=== PATIENT | male | born 1970 | race Two or more races ===

== ENCOUNTER 2017-10-05 13:01 | Outpatient (CLI) | payer OTHER | END 2017-10-05 13:02 | disposition home or self-care (01) | LOC: SC 13:01 | PROVIDERS: ATTEND Nurse Practitioner Family | DX: G47.33 Obstructive sleep apnea (adult) (pediatric) (principal); M26.609 Unspecified temporomandibular joint disorder, unspecified side; E03.9 Hypothyroidism, unspecified | CPT/HCPCS: 99203; 99212 ==

== ENCOUNTER 2017-12-02 20:49 | Outpatient (CLI) | payer OTHER | END 2017-12-02 20:50 | disposition home or self-care (01) | LOC: SC 20:49 | PROVIDERS: ATTEND Internal Medicine Pulmonary Disease | DX: G47.61 Periodic limb movement disorder (principal); R00.1 Bradycardia, unspecified | CPT/HCPCS: 95810 ==

== ENCOUNTER 2018-01-04 09:16 | Outpatient (CLI) | payer OTHER | END 2018-01-04 09:17 | disposition home or self-care (01) | LOC: SC 09:16 | PROVIDERS: ATTEND Nurse Practitioner Family | DX: R06.83 Snoring (principal); G47.61 Periodic limb movement disorder; R00.1 Bradycardia, unspecified; R53.83 Other fatigue; G47.00 Insomnia, unspecified | CPT/HCPCS: 99212; 99214 ==

== ENCOUNTER 2018-07-13 10:43 | Outpatient (CLI) | payer OTHER | END 2018-07-13 10:44 | disposition home or self-care (01) | LOC: SC 10:43 | PROVIDERS: ATTEND Nurse Practitioner Family | DX: G47.33 Obstructive sleep apnea (adult) (pediatric) (principal) | CPT/HCPCS: 99212; 99214 ==

== ENCOUNTER 2018-08-30 13:13 | Outpatient (CLI) | payer OTHER | END 2018-08-30 13:14 | disposition home or self-care (01) | LOC: SC 13:13 | PROVIDERS: ATTEND Nurse Practitioner Family | DX: G47.33 Obstructive sleep apnea (adult) (pediatric) (principal); G47.00 Insomnia, unspecified | CPT/HCPCS: 99212; 99214 ==

== ENCOUNTER 2018-11-27 10:10 | Outpatient (CLI) | payer OTHER | END 2018-11-27 10:11 | disposition home or self-care (01) | LOC: SC 10:10 | PROVIDERS: ATTEND Nurse Practitioner Family | DX: G47.33 Obstructive sleep apnea (adult) (pediatric) (principal); G47.00 Insomnia, unspecified | CPT/HCPCS: 99212; 99214 ==

== ENCOUNTER 2019-01-10 08:34 | Outpatient (CLI) | payer OTHER ==
[2019-01-10 09:53] VITALS: BP 114/68
--- NOTE | 2019-01-10 09:53 | SLEEP CARE CONSULTATION ---
Information from patient questionnaire entered by Debbie Dick. I have reviewed and concur with the information entered by Debbie Dick. This document represents the service I personally performed and the decisions made by me, Arleen Silverio, RN, MSN, ADMINISTRATIVE SUPPORT ASSOCIATE. History of Present Illness Previous diagnosis: Mild (The ), Obstructive Sleep Apnea-Hypopnea Syndrome AHI: 7 Reason for CPAP/BiPAP follow up: one month Equipment type: CPAP Equipment obtained from: [facility] Mask style: Full face Mask brand: Respironics Backup mask available: Yes (he has a Dreamwear full face mask. ) Last cushion change: none since July due to supply replacement problem HPI additional information: The pressure was not changed as ordered. Patient is not able to get supplies refilled as requested. The diary helped him sleep better in recognizing to use CPAP better and what was bothering him. He is feeling a little more acclimated with CPAP. 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 CPAP Compliance Data - Data Reviewed with Patient Average duration of nightly device use: 5.45 Compliance rate %: 76.7 Humidity settin Heated hose settin Average residual AHI: 1.6 Average large leak: 18 seconds Subjective Patient concerns: reports: air blowing in eyes (believes it is due to failing cushion), mask leak noise (He wonders if due to drooling in mask. ), condensation in mask/hose, other (He is pulling off mask when too much mask nois e as well as taking off when not aware and waking with mask off face about 50% of time. ). denies: aerophagia, mask discomfort, dry mouth, nose, throat, epistaxis Observed to snore while using device: No On therapy, patient: reports: sleeping better, awakening more refreshed ( a little dependent upon other life events), being more awake and alert during the day, more rested overall. denies: drowsiness while driving Initial [place] Sleepiness Scale score: 3 Current [place] Sleepiness Scale score: 5 Review of Systems Review of systems same as previous: No Ear/Nose/Throat: reports: nasal congestion Endocrine: reports: thyroid disease Musculoskeletal: reports: joint pain (hip pain evaluated in November) Immunologic: reports: sneezing, allergies to food or environment (allergic rhinitus ) Allergies and Home Medications Known drug allergies: No Home medication list reviewed: Yes Allergy and home medication list: Levothyroxine 112mcg tab one daily Ergocalciferol (Vitamin D) 50,000IU tab one weekly Naproxen 500mg tab take as directed as needed Hay fever Physical Exam Blood Pressure: 114/68 Cuff size: regular Heart Rate: 50 O2 Saturation: 98 Height: 6 ft 1.25 in Weight (kg): 92.986 kg Body Mass Index: 26.9 Impression and Plan 1. Obstructive Sleep Apnea-Hypopnea Syndrome, mild, with good treatment compliance and good apnea control. On CPAP therapy, there is improved sleep q uality and continues to feel more rested overall. For supply concerns, I informed patient he can transfer to another company and I will have my discharge inform him of his choices. A DWO prescription will be made. If continued problems with supplies, he can transfer again. Hopefully with new supplies, he will not be waking to mask leaks and able to use CPAP longer. He is already using CPAP an an hour more than last visit. He is advised to restart use of humidity at lowest setting with heated hose at lowest setting to see if his drooling is in response to oral dryness. He was shown how to adjust settings with sample device. I also discussed rationale of why as needed. In preparation for shift work, I reviewed [facility] coping with shift work highlights and how to prepare to sleep during the day and importance of maintaining a regular wake and sleep schedule. He feels that his insomnia has improved by implementing measures discussed. I also noted that he is more rested with 9 hours of sleep on review of sleep diary. So in transition to shift work maybe an 8 hour sleep time with a 1 hour before shift nap will assist him to get the sleep he needs. I will keep him on autoCPAP pressure as he has gained weight and has plans to lose to allow pressure to adjust with weight change. Patient's apnea severity and rationale for treatment to reduce apnea, improve sleep quality and reduce cardiovascular and cerebrovascular events was reviewed. Plan Continue auto CPAP pressure at 4-6 cm H2O. Transfer of Care Notify me if snoring with the mask or feeling that the pressure is too much o r too little. Attempt to lose weight. Adjust humidity / heated hose as instructed Strive for more sleep Implement methods to adjust to shift work to improve sleep efficiency. Return for follow-up in 3 months, or sooner if concerns arise. I spent 100% of this 35 minute visit face to face with the patient with greater than 50% of this was spent time counseling the patient and coordination of care.
== END 2019-01-10 08:35 | disposition home or self-care (01) ==
LOC: SC 08:34
PROVIDERS: ATTEND Nurse Practitioner Family
DX: G47.33 Obstructive sleep apnea (adult) (pediatric) (principal)
CPT/HCPCS: 99212; 99214

== ENCOUNTER 2019-04-09 15:48 | Outpatient (CLI) | payer OTHER ==
[2019-04-09 16:44] VITALS: BP 96/66
--- NOTE | 2019-04-09 16:44 | SLEEP CARE CONSULTATION ---
Information from patient questionnaire entered by Debbie Dick. I have reviewed and concur with the information entered by Debbie Dick. This document represents the service I personally performed and the decisions made by me, Arleen Silverio, RN, MSN, APPRAISAL COORDINATOR. History of Present Illness Previous diagnosis: Mild, Obstructive Sleep Apnea-Hypopnea Syndrome AHI: 7.0 Reason for follow up: three month Equipment type: CPAP Equipment obtained from: [employer] (in [place] - getting supplies now) Mask style: Full face ([place]) Mask brand: Respironics Backup mask available: Yes Last cushion change: 3 weeks ago CPAP Compliance Data - Data Reviewed with Patient Average duration of nightly device use: 5.5 Compliance rate %: 74.4 (90 days) Current pressure setting (cmH2O): 4-6 Humidity settin Heated hose settin Average residual AHI: 2.1 Average large leak: 58 sec Subjective Missed days of use due to: reports: other (unknown) Patient concerns: reports: condensation in mask/hose (rare that he thinks is from drooling. ), nasal congestion (mild- does not interfere with use of CPAP). denies: aerophagia, mask discomfort, air blowing in eyes, mask leak noise, dry mouth, nose, throat, epistaxis Observed to snore while using device: No Current pressure setting perceived as: comfortable On therapy, patient: reports: sleeping better, awakening more refreshed, being more awake and alert during the day, more rested overall (if sufficient sleep). denies: drowsiness while driving Initial [place] Sleepiness Scale score: 3 Current [place] Sleepiness Scale score: 4 Allergies and Home Medications Known drug allergies: No Home medication list reviewed: Yes Allergy and home medication list: Levothyroxine 112mcg tab one daily Ergocalciferol (Vitamin D) 50,000IU tab one weekly Naproxen 500mg tab take as directed as needed Allergy List Hay fever Review of Systems Review of systems same as previous: Yes Physical Exam Blood Pressure: 96/66 Cuff size: long Heart Rate: 58 O2 Saturation: 98 Height: 6 ft 1.25 in Weight: 193 lb Body Mass Index: 25.2 BMI Classification: Overweight Impression and Plan 1. Obstructive Sleep Apnea-Hypopnea Syndrome, mild, with good treatment compliance and good apnea control. On CPAP therapy, the patient has better sleep quality and is more rested overall. For his mask aldrich, I showed him Pad A Cheek strap barriers and phamplet given. He reports that he has always been a drooler but has snored before CPAP which can cause oral dryness. I explained how the body can react to dryness by increasing oral secretions. Thus he is advised to consider use of the humidifier to see if drooling is from dryness. Use of the humidity can also reduce nasal congestion if interfering with CPAP use. Patient's apnea severity and rationale for treatment to reduce apnea, improve sl eep quality and reduce cardiovascular and cerebrovascular events was reviewed. 2. rn shift mgr disorder. Patient just started night filler and is in process of acclimation to new schedule and getting enough sleep while meeting family needs. I reviewed tips to get better sleep as noted in [facility] shift work pamphlet given. He is advised to strive for a minimum of 7 hours of sleep. Most night filler workers sleep best when first return from work after a light snack and shower. Preparing the room for day sleep is essential as well as discussing his sleep needs with his family. His if unable to achieve 7 hours in his first block of sleep, 6 hours may be sufficient if he can take an hour nap before work. Patient agreed with plan. The goal is to keep his sleep schedule as regular as possible every day. * Continue CPP pressure at 4-6 cmH2O * Implement methods discussed to get more sleep. * Notify me if snoring with mask or feeling that the pressure is too much or too little * Attempt to lose weight * Return for follow up in 6 months , or sooner if concerns arise I spent 100% of this 25 minute visit face to face with the patient with greater than 50% of this was spent time counseling the patient and coordination of care.
== END 2019-04-09 15:49 | disposition home or self-care (01) ==
LOC: SC 15:48
PROVIDERS: ATTEND Nurse Practitioner Family
DX: G47.33 Obstructive sleep apnea (adult) (pediatric) (principal); G47.26 Circadian rhythm sleep disorder, shift work type
CPT/HCPCS: 99212; 99214

== ENCOUNTER 2019-10-25 16:07 | Outpatient (CLI) | payer OTHER ==
--- NOTE | 2019-10-25 15:31 | SLEEP CARE CONSULTATION ---
Information from patient questionnaire entered by Debbie Dick. I have reviewed and concur with the information entered by Debbie Dick. This document represents the service I personally performed and the decisions made by me, Arleen Silverio, RN, MSN, TITLE ONE TEACHER. History of Present Illness Service Date and Time: 10/25/2019 1607 Previous diagnosis: Mild, Obstructive Sleep Apnea-Hypopnea Syndrome AHI: 7.1 (in 2017) Reason for follow up: six month Equipment type: CPAP Equipment obtained from: [employer] (in [place] - getting supplies as needed) Mask style: Full face Backup mask available: Yes (old mask ) Last cushion change: a month Prior sleep studies: Yes Year and Where: 2016 - [place] Type of Sleep Study: Polysomnography HPI additional information: works in [place] with [address] No car pool. 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 leaves at 8:30 pm and gets home at 9am. Sleep time 9:30am to 1:30 to 3:30 or so. He sometimes cannot get back to sleep after getting up to use bathroom after 4 hours of sleep. He keeps room cool and opens window or uses fan when wakes. He is averaging about 5 -6 hours on work nights and non work days he makes up his sleep up to 10- 11 hours. He works 3 on and 2 off rotation. CPAP Compliance Data - Data Reviewed with Patient Average duration of nightly device use: 6.1 Compliance rate %: 70.6 (180 days) Current pressure setting (cmH2O): 4-6 Humidity settin Heated hose settin Average residual AHI: 1.9 Average large leak: 2 min 28 sec Subjective Patient concerns: reports: aerophagia (once a month - mild symptoms - declined pressure change ), mask leak noise (headgear strap loose contributing to leaks ). denies: mask discomfort, air blowing in eyes, condensation in mask/hose, nasal congestion, dry mouth, nose, throat, epistaxis, other Observed to snore while using device: No Current pressure setting perceived as: comfortable On therapy, patient: reports: sleeping better, awakening more refreshed, being more awake and alert during the day, more rested overall. denies: drowsiness while driving Initial [place] Sleepiness Scale score: 3 (in 2018) Allergies and Home Medications Home medication list reviewed: No (no changes) Review of Systems Review of systems same as previous: Yes Physical Exam Height: 6 ft 1.25 in Weight: 191 lb (home weight) Body Mass Index: 25.0 BMI Classification: Overweight Impression and Plan 1. Obstructive Sleep Apnea-Hypopnea Syndrome, mild , with good treatment compliance and good apnea control. On CPAP therapy, the patient has better sleep quality and is more rested overall. He is very pleased with benefit of CPAP treatment. He reports occasional mild aerophagia symptoms that he feels occurs when mask is misaligned causing gulpling of air more. I offered to reduce his CPAP pressure but patient declined stating symptoms very minimal and not bothersome. I discussed how future significant weight loss could increase symptoms rationale and to contact this office. He is not planning on losing more than 5 pounds. Patient states his headgear velcro is wearing out and comes loose. He was advised how he can add more velcro until he can update mask. He also reports intermittent fatigue from shift work discussed below. Patient's apnea severity and rationale for treatment to reduce apnea, improve sleep quality and reduce cardiovascular and cerebrovascular events was reviewed. 2. Shift work disorder with intermittent fatigue from insufficient sleep during transition days on and off work. Patient advised to strive for a regular schedule of sleep that is consistent days on and off. He can chart what his work schedule and sleep schedule are currently on paper to dicern how to work out a regular sleep time most nights so he does not have to be sleep deficient and have to make up sleep on days off. Ideally, he should maintain a regular sleep schedule but this is hard to achieve every night with family needs. He is considering 12 hour shifts to have an extra day off but this may reduce opportunity to sleep with commute. He is advised to strive for a minimum of 6 hours of sleep every night and a hour nap before shift. Longer sleep time will allow opportunity for more deep sleep. I also recommend always using the fan at onset for noise buffer, white noise and to keep room comfortable at initiation of sleep to assist lengthen sleep length. He is also advised to review again the [facility] Coping with Shift work pamphlet given at last visit for ideas for better sleep environment and sleep / wake transition * Continue auto CPAP pressure at 4-6 cmH2O * Implement methods to improve sleep efficiency with shift work * Notify me if snoring with mask or feeling that the pressure is too much or too little * Attempt to lose weight * Call this office if any problems using CPAP * Return for follow up in 1 year , or sooner if concerns arise Visit Type: Telehealth Video (to reduce risk of Covid 19 exposure) Patient Location: Home Location of Provider: Home Patient agrees and consents to this telehealth visit type: Yes Patient agrees to have their insurance billed: Yes Time Spent with Patient (minutes): 25 Provider Statement: I spent 100% of the Telehealth Video Call with the patient with greater than 50% spent counseling the patient and coordination of care.
== END 2019-10-25 16:08 | disposition home or self-care (01) ==
LOC: SC 16:07
PROVIDERS: ATTEND Nurse Practitioner Family
DX: G47.33 Obstructive sleep apnea (adult) (pediatric) (principal); G47.26 Circadian rhythm sleep disorder, shift work type; E66.3 Overweight; Z68.25 Body mass index [BMI] 25.0-25.9, adult

== ENCOUNTER 2020-09-27 21:44 | Emergency (ER) | payer OTHER ==
[2020-09-27 21:53] VITALS: BP 134/83
[2020-09-27] MEDS ORDERED: TETANUS/DIPHTHERIA/PERTUSSIS 0.5 ML SYRINGE IM ONE (22:00)
[2020-09-27] MEDS ORDERED: BUFFERED LIDOCAINE 10 ML SYRINGE SUBQ STA (22:00)
--- NOTE | 2020-09-27 22:04 | ED Physician Documentation ---
PD HPI UPPER EXT INJURY - Stated complaint Stated Complaint: RT THUMB LAC - Chief complaint Chief Complaint: Laceration - History obtained from History obtained from: Patient - Additonal information Additional information: Right-handed gentleman who is not up-to-date on tetanus cut his right thumb on a tin can lid at home just prior to arrival. Review of Systems Constitutional: reports: Reviewed and negative Eyes: reports: Reviewed and negative Ears: reports: Reviewed and negative Nose: reports: Reviewed and negative PD PAST MEDICAL HISTORY - Present Medications Home Medications: Ambulatory Orders Medication Instructions Recorded Confirmed Levothyroxine Sodium [Levoxyl] 112 mg PO DAILY 09/27/20 09/27/20 - Allergies Allergies/Adverse Reactions: Allergies Allergy/AdvReac Type Severity Reaction Status Date / Time No Known Drug Allergies Allergy Verified 09/27/20 21:53 PD ED PE NORMAL - Vitals Vital signs reviewed: Yes - General General: Alert and oriented X 3, No acute distress - Extremities Extremities: Other (8 mm laceration on the radial side of the pulp of the right thumb without nail involvement or distal neurovascular compromise.) - Neuro Neuro: Alert and oriented X 3, No motor deficit, Normal speech Results - Vitals Vitals: Vital Signs - 24 hr 09/27/20 21:50 Temperature 36.4 C L Heart Rate 57 L Respiratory 16 Rate Blood Pressure 134/83 H O2 Saturation 100 Oxygen O2 Source Room air Procedures - Laceration (location) R thumb Length in cm: 1 Wound type: Curved, Into subcut fat Neurovascular status: Sensory intact, Motor intact, Vascular intact Tendon involvement: Tendon intact Anesthesia: Lidocaine 1%, With bicarb Wound preparation: Hibiclens, Irrigated copiously NS Skin layer closure: Nylon, Interrupted, Size #-0 - enter number (5-0), Sutures - enter # (3) Other: Patient tolerated well, No complications, Neurovascular intact, Dressing applied, Tetanus booster given Departure - Departure Disposition: 01 Home, Self Care Clinical Impression: Finger laceration Qualifiers: Encounter type: initial encounter Finger: thumb Damage to nail status: without damage Foreign body presence: without foreign body Laterality: right Qualified Code(s): S61.011A - Laceration without foreign body of right thumb without damage to nail, initial encounter Condition: Good Record reviewed to determine appropriate education?: Yes Instructions: ED Laceration Hand Comments: Come back for any signs of infection which would include: Redness, swelling, drainage, increased pain, or fevers. You can wash it soap and water. Keep it covered and moist with bacitracin oint ment which is available over the counter; avoid neosporin. Follow-up with your physician in 10-14 days for suture removal.
== END 2020-09-27 22:36 | disposition home or self-care (01) ==
LOC: ED 21:44
DX: S61.011A Laceration without foreign body of right thumb without damage to nail, initial encounter (principal); W26.8XXA Contact with other sharp object(s), not elsewhere classified, initial encounter; Y93.89 Activity, other specified; Y92.009 Unspecified place in unspecified non-institutional (private) residence as the place of occurrence of the external cause; Z23 Encounter for immunization
CPT/HCPCS: 12001; 90471; 99282; 99283

== ENCOUNTER 2020-11-06 10:33 | Outpatient (CLI) | payer OTHER ==
--- NOTE | 2020-11-06 10:57 | SLEEP CARE CONSULTATION ---
Information from patient questionnaire entered by Debbie Dick. I have reviewed and concur with the information entered by Debbie Dick. This document represents the service I personally performed and the decisions made by , Agnes Mathis ARNP. History of Present Illness Service Date and Time: 11/06/2020 1033 Previous diagnosis: Mild, Obstructive Sleep Apnea-Hypopnea Syndrome AHI: 7.1 (in 2017) Reason for follow up: annual (last seen 10/2019) Equipment type: CPAP Equipment obtained from: [employer] (getting supplies as needed) Mask style: Full face ([place]) Backup mask available: Yes (old mask) Last cushion change: 2 weeks ago Prior sleep studies: Yes Year and Where: 2017 - [facility] additional information: ISREAL GRAVES was diagnosed to have mild, AHI 7.1, obstructive sleep apnea- hypopnea syndrome and returned today for CPAP therapy annual follow-up. CPAP Compliance Data - Data Reviewed with Patient Average duration of nightly device use: 6 hr 49 min Compliance rate %: 72.8 (180 days) Current pressure setting (cmH2O): 4-6 Humidity settin Heated hose settin Average residual AHI: 2.2 Average large leak: 9 min 30 sec Subjective Missed days of use due to: reports: illness, other (work) Patient concerns: reports: aerophagia (sometimes, not every night), mask discomfort. denies: air blowing in eyes, mask leak noise, condensation in mask/hose, nasal congestion, dry mouth, nose, throat, epistaxis, other Observed to snore while using device: No Current pressure setting perceived as: comfortable On therapy, patient: reports: sleeping better, awakening more refreshed, being more awake and alert during the day, more rested overall. denies: drowsiness while driving Initial [place] Sleepiness Scale score: 3 (in 2018) Current [place] Sleepiness Scale score: 5 Allergies and Home Medications Home medication list reviewed: Yes (no new meds) Review of Systems Review of systems same as previous: No (finger laceration last month) Physical Exam Heart Rate: 52 O2 Saturation: 98 Height: 6 ft 2 in Weight: 198 lb Body Mass Index: 25.4 BMI Classification: Overweight Impression and Plan 1. Obstructive Sleep Apnea-Hypopnea Syndrome, mild, with good treatment compliance and good apnea control. On CPAP therapy, the patient has better sleep quality and is more rested overall. He gets occasional aerophagia but thinks this is somewhat positional and does not happen every night. He will let me know if it becomes more concerning or more often and I can adjust his pressure at that time. He is satisfied with current treatment and intends to continue snf. I advised him to try to lose weight. Patient's apnea severity and rationale for treatment to reduce apnea, improve sleep quality and reduce cardiovascular and cerebrovascular events was reviewed. * Continue auto CPAP pressure at 4-6 cmH2O * Notify me if snoring with mask or feeling that the pressure is too much or too little * Attempt to lose weight * Call this office if any problems using CPAP * Return for follow up in 1 year, or sooner if concerns arise Counseling Topics: Spare mask, Weight loss health impact Visit Type: In Office Time Spent with Patient (minutes): 15 Provider Statement: I spent 100% of the Face to Face Visit with the patient with greater than 50% spent counseling the patient and coordination of care.
== END 2020-11-06 10:34 | disposition home or self-care (01) ==
LOC: SC 10:33
PROVIDERS: ATTEND Nurse Practitioner Family
DX: G47.33 Obstructive sleep apnea (adult) (pediatric) (principal); E66.3 Overweight; Z68.25 Body mass index [BMI] 25.0-25.9, adult
CPT/HCPCS: 99212

== ENCOUNTER 2022-03-03 08:34 | Outpatient (CLI) | payer OTHER ==
[2022-03-03 09:02] VITALS: BP 110/72
--- NOTE | 2022-03-03 09:02 | SLEEP CARE CONSULTATION ---
Information from patient questionnaire entered by Natacha Borrero. I have reviewed and concur with the information entered by Natacha Borrero. This document represents the service I personally performed and the decisions made by me, Agnes Mathis ARNP. History of Present Illness Service Date and Time: 03/03/2022 0834 Previous diagnosis: Mild, Obstructive Sleep Apnea-Hypopnea Syndrome AHI: 7.1 (in 2016) Reason for follow up: annual (last seen 11/24) Equipment type: CPAP (dreamstation) Equipment obtained from: [employer] (getting supplies as needed) Mask style: Full face (Amarra) Backup mask available: Yes (old mask) Last cushion change: 8 months Prior sleep studies: Yes Year and Where: 2016 [facility] additional information: ISREAL GRAVES was diagnosed to have mild, AHI 7.1, obstructive sleep apnea- hypopnea syndrome and returned today for CPAP therapy annual follow-up. Sleep Study - Results Prior sleep studies: Yes Year and Where: 2016 - CPAP Compliance Data - Data Reviewed with Patient Average duration of nightly device use: 5 hours 59 minutes Compliance rate %: 36.7 (/30 days used: 119/180 days used) Current pressure setting (cmH2O): 4-6 Average residual AHI: 2.4 Average large leak: 53 mins 28 secs Subjective Missed days of use due to: reports: other (no convinced it was doing anything; this has improved since starting to use again) Patient concerns: reports: aerophagia, mask discomfort (seal on mask; just being on his face), mask leak noise, condensation in mask/hose. denies: air blowing in eyes, nasal congestion, dry mouth, nose, throat, epistaxis Observed to snore while using device: No Current pressure setting perceived as: comfortable On therapy, patient: reports: sleeping better, more rested overall. denies: drowsiness while driving Initial [place] Sleepiness Scale score: 3 (in 2018) Current [place] Sleepiness Scale score: 3 (03/03/22) Allergies and Home Medications Home medication list reviewed: Yes (no changes) Allergy and home medication list: Allergies No Known Drug Allergies Allergy (Verified 09/27/20 21:53) Review of Systems Review of systems same as previous: Yes (no changes) Physical Exam Vital signs obtained and entered by: DARSHAN MARTINEZ Blood Pressure: 110/72 (left arm ) Cuff size: regular Heart Rate: 62 O2 Saturation: 98 Height: 6 ft 2 in Weight: 193 lb Body Mass Index: 24.7 BMI Classification: Normal Impression and Plan 1. Obstructive Sleep Apnea-Hypopnea Syndrome, mild, with poor treatment compliance and good apnea control. On CPAP therapy, the patient has better sleep quality and is more rested overall. Patient states he was not convinced using the CPAP was helpful and so he "stopped using it for a while". He was encouraged by his to use the CPAP to reduce his snoring and he started resuming using it recently. He now states that he is noticing a difference in quality of sleep and restfulness in the morning. He would like an updated supplies prescription. I discussed with him about his compliance needing to be 70% and he agreed to come back in a month to recheck compliance before sending in supply update. He voiced agreement. Compliance guidelines reviewed for insurance coverage. Patient was counseled on the difference between meeting compliance and optimal use of CPAP. Optimal use of CPAP is use of CPAP with all sleep to obtain maximum benefit of treatment. Patient is encouraged to use CPAP with all sleep. P atient's apnea severity and rationale for treatment to reduce apnea, improve sleep quality and reduce cardiovascular and cerebrovascular events was reviewed. * Change auto CPAP pressure to 4-5 cmH2O * Notify me if snoring with mask or feeling that the pressure is too much or too little * Maintain a healthy weight * Call this office if any problems using CPAP * Return for follow up in 1 month, or sooner if concerns arise Counseling Topics: Spare mask, Weight control Visit Type: In Office Time Spent with Patient (minutes): 21 Provider Statement: I spent 100% of the Face to Face Visit with the patient with greater than 50% spent counseling the patient and coordination of care.
== END 2022-03-03 08:35 | disposition home or self-care (01) ==
LOC: SC 08:34
PROVIDERS: ATTEND Nurse Practitioner Family
DX: G47.33 Obstructive sleep apnea (adult) (pediatric) (principal)
CPT/HCPCS: 99212; 99213

== ENCOUNTER 2022-04-07 09:30 | Outpatient (CLI) | payer OTHER ==
[2022-04-07 09:51] VITALS: BP 106/70
--- NOTE | 2022-04-07 09:51 | SLEEP CARE CONSULTATION ---
Information from patient questionnaire entered by Hamida Power. I have reviewed and concur with the information entered by Hamida Power. This document represents the service I personally performed and the decisions made by me, Agnes Mathis ARNP. History of Present Illness Service Date and Time: 04/07/2022 0930 Previous diagnosis: Mild, Obstructive Sleep Apnea-Hypopnea Syndrome AHI: 7.1 (in 2016) Reason for follow up: one month Equipment type: CPAP (DREAM STATION) Equipment obtained from: [email or web address] (getting supplies as needed) Mask style: Full face (Amarra) Backup mask available: No (will keep old mask when replaced) Last cushion change: 1 month Prior sleep studies: Yes Year and Where: 2016 [facility] additional information: ISREAL GRAVES was diagnosed to have mild, AHI 7.1, obstructive sleep apnea- hypopnea syndrome and returned today for CPAP therapy one month with pressure change follow-up. Sleep Study - Results Prior sleep studies: Yes Year and Where: 2016 CPAP Compliance Data - Data Reviewed with Patient Average duration of nightly device use: 6 hours 57 minutes Compliance rate %: 100 (03-07-2022 to 04-05-2022; 30/30 days used) Current pressure setting (cmH2O): 4-5 Average residual AHI: 2.5 Central apnea: 0.1 Obstructive apnea: 0.6 Average large leak: 14 lpm Subjective Patient concerns: reports: aerophagia, air blowing in eyes, mask leak noise. denies: mask discomfort, condensation in mask/hose, nasal congestion, dry mouth, nose, throat, epistaxis Observed to snore while using device: No Current pressure setting perceived as: comfortable On therapy, patient: reports: sleeping better, awakening more refreshed, being more awake and alert during the day, more rested overall. denies: drowsiness while driving Initial [place] Sleepiness Scale score: 3 (in 2018) Current [place] Sleepiness Scale score: 2 (04/07/2022) Allergies and Home Medications Drug allergies reviewed: Yes (NKDA) Home medication list reviewed: Yes (no changes) Review of Systems Review of systems same as previous: Yes (no changes) Physical Exam Vital signs obtained and entered by: HAMIDA Mcdonald MA Blood Pressure: 106/70 (LEFT ARM ) Cuff size: regular Heart Rate: 76 O2 Saturation: 97 Height: 6 ft 2 in Weight: 190 lb 6.4 oz Body Mass Index: 24.4 BMI Classification: Normal Impression and Plan 1. Obstructive Sleep Apnea-Hypopnea Syndrome, mild, with good treatment compliance and good apnea control. On CPAP therapy, the patient has better sleep quality and is more rested overall. Patient is still getting some aerophagia especially if he sleeps on his side. If he sleeping on his back he does not seem to get much air in his stomach. He is set at 4 to 5 cm H2O which is on the low end of the spectrum. He would like to leave it there and may be try a c hinstrap will mask tapes to see if he is opening his mouth and swallowing air when on his side. He will let me know if he continues to have problem with discomfort from aerophagia in the mornings for further adjustment as needed. Patient has significant improvement of their sleep apnea and are satisfied with current CPAP therapy. Patient's apnea severity and rationale for treatment to reduce apnea, improve sleep quality and reduce cardiovascular and cerebrovascular events was reviewed. * Continue auto CPAP pressure at 4-5 cmH2O * Update supplies * Notify me if snoring with mask or feeling that the pressure is too much or too little * Call this office if any problems using CPAP * Return for follow up in 1 year, or sooner if concerns arise Counseling Topics: Spare mask Visit Type: In Office Time Spent with Patient (minutes): 20 Provider Statement: I spent 100% of the Face to Face Visit with the patient with greater than 50% spent counseling the patient and coordination of care.
== END 2022-04-07 09:31 | disposition home or self-care (01) ==
LOC: SC 09:30
PROVIDERS: ATTEND Nurse Practitioner Family
DX: G47.33 Obstructive sleep apnea (adult) (pediatric) (principal)
CPT/HCPCS: 99212; 99213

== ENCOUNTER 2023-04-01 15:46 | Outpatient (CLI) | payer OTHER ==
--- NOTE | 2023-04-01 16:25 | Sleep Patient Instructions ---
Sleep Center Visit Summary - Patient Visit Information Reason for Visit: 5-month follow-up - Patient Instructions Additional Instructions: You were here for follow up of CPAP therapy. You will be continued on CPAP therapy with pressure at 4-5 cmH2O. A prescription for supplies and a new device will be sent to [employer] [facility] [employer] They will call you to set up the machine. Please call us to set up you compliance followup visit. You should follow up with sleep care one month after obtaining new device. You may contact us sooner for any questions or concerns. - Clinic Information Contact: [facility] [address] [place] [address] [email or web address] T: [phone]
--- NOTE | 2023-04-01 16:31 | SLEEP CARE CONSULTATION ---
Information from patient questionnaire entered by Marychuy Power. I have reviewed and concur with the information entered by Marychuy Power. This document represents the service I personally performed and the decisions made by , Agnes Mathis ARNP. History of Present Illness Service Date and Time: 04/01/2023 1546 Previous diagnosis: Mild, Obstructive Sleep Apnea-Hypopnea Syndrome AHI: 7.1 (in 2016) Reason for follow up: other (5 MONTH F/U LAST SEEN 10/2022) Equipment type: CPAP (DREAMSTATION not recertified; s/u in 2018; SD CARD NEEDED) Equipment obtained from: [employer] (wants to set up with [facility]) Mask style: Full face (Mattie View) Backup mask available: Yes (other one) Last cushion change: 3 months Prior sleep studies: Yes Year and Where: 2016 - [facility] additional information: ISREAL GRAVES was diagnosed to have mild, AHI 7.1, obstructive sleep apnea- hypopnea syndrome and returned today for CPAP therapy 5 month follow-up. Sleep Study - Results Prior sleep studies: Yes Year and Where: 2016 - CPAP Compliance Data - Data Reviewed with Patient Average duration of nightly device use: 6 hours 7 minutes Compliance rate %: 85 (178/180 days used) Current pressure setting (cmH2O): 4-5 Average residual AHI: 2 Central apnea: 0.1 Obstructive apnea: 0.4 Hypopnea: 1.5 Average large leak: 3 mins Subjective Patient concerns: reports: aerophagia (very occasional), other (drool, occasional). denies: mask discomfort, air blowing in eyes, mask leak noise, condensation in mask/hose, nasal congestion, dry mouth, nose, throat, epistaxis Observed to snore while using device: No Current pressure setting perceived as: comfortable On therapy, patient: reports: sleeping better, awakening more refreshed, being more awake and alert during the day, more rested overall. denies: drowsiness while driving Initial [place] Sleepiness Scale score: 3 (in 2018) Current [place] Sleepiness Scale score: 3 (04/01/23) Allergies and Home Medications Known drug allergies: No Drug allergies reviewed: Yes Home medication list reviewed: Yes (no changes) Allergy and home medication list: Allergies No Known Drug Allergies Allergy (Verified 03/31/23 14:37) Review of Systems Review of systems same as previous: Yes (NO CHANGE) Physical Exam Vital signs obtained and entered by: MARYCHUY Mcdonald MA Blood Pressure: 110/60 (LEFT ARM) Cuff size: regular Heart Rate: 61 O2 Saturation: 98 Height: 6 ft 2 in Weight: 192 lb 3.2 oz Body Mass Index: 24.6 BMI Classification: Normal Impression and Plan 1. Obstructive Sleep Apnea-Hypopnea Syndrome, mild, with good treatment compliance and good apnea control. On CPAP therapy, the patient has better sleep quality and is more rested overall. The patients CPAP is over 5 years old and of reasonable use. Thus, the CPAP will be updated. He also wants to change DME suppliers. A [facility] prescription will be made for new machine, supplies and a transfer of DME services. Compliance guidelines for new device and follow up discussed. Patient's apnea severity and rationale for treatment to reduce apnea, improve sleep quality and reduce cardiovascular and cerebrovascular events was reviewed. * Continue auto CPAP pressure at 4-5 cmH2O * Transfer DME * Update Machine * Update supply prescription * Notify me if snoring with mask or feeling that the pressure is too much or too little * Attempt to lose weight * Call this office if any problems using CPAP * Return for follow up one month after obtaining new device, or sooner if concerns arise Counseling Topics: Spare mask Prescriptions: Auto CPAP, Device supplies Visit Type: In Office Time Spent with Patient (minutes): 21 Provider Statement: I spent 100% of the Face to Face Visit with the patient with greater than 50% spent counseling the patient and coordination of care.
[2023-04-01 16:32] VITALS: BP 110/60; O2SAT 98
== END 2023-04-01 15:47 | disposition home or self-care (01) ==
LOC: SC 15:46
PROVIDERS: ATTEND Nurse Practitioner Family
DX: G47.33 Obstructive sleep apnea (adult) (pediatric) (principal)
CPT/HCPCS: 99212; 99213